=== PATIENT | male | born 1955 | race Caucasian/White ===

== ENCOUNTER 2024-07-13 10:02 | Outpatient (CLI) | payer MEDICARE, SELFPAY ==
--- NOTE | ~2024-07-13 | MR_ITS ---
EXAMINATION: MR pelvis wo/w con DATE: 07/13/2024 12:19 INDICATION: Prostate cancer TECHNIQUE: Magnetic resonance imaging (MRI) of the pelvis was performed without and with 20 mL Multih ance intravenous contrast. Fullfield sequences of the pelvis included axial and coronal T2-weighted S S FSE, axial, sagittal and coronal 2D FIESTA, axial 2D FIESTA FS, axial SSFSE-IR LISA, axial dual-echo T1-weighted FSPGR, axial and coronal T1 weighted LAVA, 3D axial T2 Cube, axial diffusion-weighted SE with apparent diffusion coefficient (ADC) maps. Postcontrast sequences included a time course axial T1-weighted LAVA and sagittal and coronal T1-weighted LAVA. COMPARISON: None. FINDINGS: Prostate measures 3.5 x 2.8 cm. Seminal vesicles are unremarkable. Bladder is normal. Visualized port ions of the bowels including the appendix are normal. No pathologically enlarged pelvic or inguinal l ymphadenopathy. Small bilateral fat-containing inguinal hernias. Mild lumbar spondylosis. Normal bone marrow signal throughout. IMPRESSION: 1. Prostate measures 3.5 x 2.8 cm with no evident metastatic disease. Reviewed, dictated and finalized at location A.
--- OUTSIDE RECORDS SUMMARY | 2024-07-13 11:36 | XMS_ITS | Clinical Summary ---
Author Organization [facility] [employer] Address [address] [place] [address] Care Team Providers Care Scene Shifter Name Role Phone Onur Frances MD Primary Care Provider [phone] Source Comments [facility] [employer],non-owned Affiliates and Associated Physician Practices is amultiple site organization consisting of ambulatory clinics and hospital sitesin [place], [place], [place] and [place]. This disclosure is being madepursuant to the Care Everywhere program and may not contain all information available regarding this patient. Last updated 17.[facility] [employer] Allergies No known active allergies Medications * Be aware that medications may not be up to date on this document. Alwaysverify current medications with the patient. Medication Sig Dispensed Refills Start Date End Date Status methocarbamol (ROBAXIN) 750 MG tablet Take 750 mg by mouth every 6 hours as needed for Muscle Spasms Active Acetaminophen-Codeine (TYLENOL WITH CODEINE #3 PO) Take 1 Tab by mouth every 4 hours as needed Active piroxicam (FELDENE) 20 MG capsule Take 20 mg by mouth once daily Active Social History Tobacco Use Types Packs/Day Years Used Date Smoking Tobacco: Former Cigarettes Q uit: 04/08/1989 Smokeless Tobacco: Never Alcohol Use Standard Drinks/Week Comments Yes 0 (1 standard drink = 0.6 oz pur e alcohol) rarely Sex and Gender Information Value Date Recorded Sex Assigned at Not on file Gender Identity Not on file Sexual Orientation Not on file Last Filed Vital Signs Vital Sign Reading Time Taken Comments Blood Pressure 185/86 06/01/2015 11:13 AM LICENSE DISTRIBUTOR Pulse 63 06/01/2015 11:13 AM LICENSE DISTRIBUTOR Temperature 36.7 C (98 F) 05/17/2015 1:05 PM LICENSE DISTRIBUTOR Respiratory Rate 18 05/17/2015 1:05 PM LICENSE DISTRIBUTOR Oxygen Saturation 99% 05/17/2015 1:05 PM LICENSE DISTRIBUTOR Inhaled Oxygen Concentration - - Weight 115.7 kg (255 lb) 06/01/2015 11:13 AM LICENSE DISTRIBUTOR Height 185.4 cm (6' 1 ) 06/01/2015 11:13 AM LICENSE DISTRIBUTOR Body Mass Index 33.64 06/01/2015 11:13 AM LICENSE DISTRIBUTOR Plan of Treatment Health Maintenance Due Date Last Done Comments COLOGUARD (AGES 45-75) - COL ON CA SCREENING 1955 COLON MONITORING 1955 COLONOSCOPY - COLON CA SCREENING 1955 CT COLONOGRAPHY - COLON CA SCREENING 1955 Colorectal Cancer Screening 1955 FIT - COLON CA SCREENING 1955 FLEX SIG - COLON CA SCREENING 1955 LIPID TESTING 1955 HEPATITIS C SCREENING 12/26/1973 DTAP/TDAP/TD VACCINES (1 - Tdap) 12/30/1974 PNEUMOCOCCAL VACCINE 50+ (1 of 1 - PCV) 12/30/2005 ZOSTER VACCINE (1 of 2) 12/30/2005 AAA SCREENING 12/30/2020 COVID-19 VACCINE (1 - 2023-2 5 season) 2023 DEPRESSION SCREENING 04/08/2024 MEDICARE AWV CALENDAR YEAR 2024 INFLUENZA VACCINE (Season Ended) 2024 Respiratory Syncytial Virus (RSV) Vaccine Pt: or over 60 yrs (1 - 1-dose 75+ series) 12/30/2030 HEPATITIS B VACCINE Aged Out No longe r eligible based on patient's age to complete this topic HIB VACCINE Aged Out No longer eligi ble based on patient's age to complete this topic HPV VACCINE Aged Out No longer eligi ble based on patient's age to complete this topic MENINGOCOCCAL (Group B) VACC INE SHARED DECISION-MAKING Aged Out No longer eligibl e based on patient's age to complete this topic MENINGOCOCCAL GROUPS A/C/Y/W VACCINE Aged Out No longer eligible b ased on patient's age to complete this topic Medical Devices Implanted Type Area Ec Teacher Device Identifier Shelf Expiration Date Model / Serial / Lot Wax Bone Implanted:Qty: 1 on 05/17/2015 by Erich De Santiago MD at [facility] Right: Spine Lumbar [employer] 07/08/2019 [id number] / / [id number] Floseal Implanted:Qty: 1 on 05/17/2015 by Erich De Santiago MD at [facility] Right: Spine Lumbar [facility] 08/05/2016 [id number] / / [id number] Advance Directives * Full Code (Latest Code Status on File) Date Activated Date Inactivated Comments 05/17/2015 11:29 AM 05/17/2015 5:27 PM Care Teams Scene Shifter Relationship Specialty Start Date End Date Onur Frances MD PCP - General Internal Medicine 05/11/15
--- OUTSIDE RECORDS SUMMARY | 2024-07-13 11:36 | XMS_ITS | Encounter Summary ---
Author Organization [facility] Address [address] [place] [address] Phone Care Team Providers Care Mold Press Operator Name Role Phone Liz Plaza MD Primary Care Provider Sandra Busby APRN, CNP Primary Care P rovider Andrey Chaudhry MD Unavailable [phone] Reason for Visit * Reason Comments Medication Refill Encounter Details Date Type Department Care Team (Late st Contact Info) Description 05/10/2023 Refill [facility] - Primary Care - [place] [address] [place] [address] Liz Plaza MD [address] [place] [address] Medication Refill Social History Tobacco Use Types Packs/Day Years Used Date Smoking Tobacco: Never Smokeless Tobacco: Never Alcohol Use Standard Drinks/Week Comments Yes 0 (1 standard drink = 0.6 oz pur e alcohol) seldom PHQ-2 Answer Date Recorded Total Score - Questions 1-9 0 10/2021 Education Answer Date Recorded What is the highest level of school you have completed or the highest degree you have received? 12th grade 05/11/2022 Sex and Gender Information Value Date Recorded Sex Assigned at Male 06/11/2024 7:[address] CLERK Legal Sex Male 9:[address] CLERK Gender Identity Male 06/11/2024 7:[address] CLERK Sexual Orientation Straight 06/11/2024 7: [address] CLERK documented as of this encounter Plan of Treatment Upcoming Encounters Date Type Department Care Team (Late st Contact Info) Description 08/14/2024 10:15 AM CDT [facility] [address] [facility] [place] [address] Andrew Toth MD 2 [facility] [address] [place] [address] 09/10/2024 8:30 AM CDT Lab [facility] [place] [address] [place] [address] [facility] 09/22/2024 8:00 AM CDT Office Visit [facility] [place] [address] [place] [address] Sandra Busby APRN, SUPERVISOR ENGRAVING [address] [place], [place] [id number] documented as of this encounter Results * LIPID PANEL (06/04/2023 8:[address] CLERK) CHOLESTEROL 144 <200 mg/dL 06/04/2023 1:[address] CLERK [facility] TRIGLYCERIDES 121 <150 mg/dL 06/04/2023 1:[address] CLERK [facility] HDL CHOLESTEROL 42 >40 mg/dL 1:[address] CLERK [facility] LDL 78 <130 mg/dL 06/04/2023 1:[address] CLERK [facility] VLDL 24 10 - 50 mg/dL 06/04/2023 1:[address] CLERK [facility] CHOL/HDL RATIO 3.4 0.0 - 4.4 06/04/2023 1:[address] CLERK [facility] NON-HDL CHOLESTEROL 102 <130 mg/dL 06/04/2023 1:14 PM [facility] IS THE PATIENT REQUIRED TO BE FASTING? Yes 06/04/2023 1:14 PM [facility] HAS THE PATIENT BEEN FASTING? Yes 06/04/2023 1:14 PM [facility] Blood Venipuncture / Unknown 06/04/2023 8:[address] CLERK 06/04/2023 8:[address] CLERK us Sandra Busby APRN, SUPERVISOR ENGRAVING CHEMISTRY ORDER KARL Final Result [facility] [address] [place] [address] * (ABNORMAL) CMP (COMPREHENSIVE METABOLIC PANEL) (06/04/2023 8:[address] CLERK) SODIUM 139 136 - 145 mmol/L 06/04/2023 1:14 PM [facility] POTASSIUM 4.3 3.5 - 5.1 mmol/L 06/04/2023 1:14 PM [facility] CHLORIDE 104 98 - 107 mmol/L 06/04/2023 1:14 PM [facility] CO2, VENOUS 27 22 - 30 mmol/L 06/04/2023 1:14 PM [facility] ANION GAP 12.3 <18.0 mmol/L 06/04/2023 1:14 PM [facility] GLUCOSE 105(H) 70 - 99 mg/dL 06/04/2023 1:14 PM [facility] BUN 23 8 - 26 mg/dL 06/04/2023 1:14 PM [facility] CREATININE, BLOOD 0.84 0.70 - 1.30 mg/dL 06/04/2023 1:14 PM [facility] BUN/CREATININE RATIO 27(H) 12 - 20 ratio 06/04/2023 1:14 PM [facility] TOTAL PROTEIN 7.5 6.3 - 8.2 g/dL 06/04/2023 1:14 PM [facility] ALBUMIN 3.8 3.5 - 5.0 g/dL 06/04/2023 1:14 PM [facility] A/G RATIO 1.0 1.0 - 2.2 06/04/2023 1:14 PM [facility] CALCIUM 9.2 8.7 - 10.5 mg/dL 06/04/2023 1:14 PM [facility] T BILI 0.6 0.2 - 1.2 mg/dL 06/04/2023 1:14 PM [facility] SGOT (AST) 21 5 - 34 U/L 06/04/2023 1:14 PM [facility] SGPT (ALT) 24 0 - 55 U/L 06/04/2023 1:14 PM [facility] ALKALINE PHOSPHATASE 79 40 - 150 U/L 06/04/2023 1:14 PM [facility] IS THE PATIENT REQUIRED TO BE FASTING? No 06/04/2023 1:14 PM [facility] GFR, ESTIMATED >60 >=60 06/04/2023 1:14 PM [facility] Comment: Creatinine Clearance is the preferred criteria for selecting drug dose adjustments in renally impaired patients. The GFR is provided as additional pertinent clinical information. GFR is reported in mL/min/1.73 sq m. Calculation based on the Chronic Kidney Disease Epidemiology Collaboration (CKD- EPI) equation refit without adjustment for race. GFR, EST. >60 >=60 024 1:14 PM [facility] GFR, EST. NONAFRICAN >60 >=60 06/04/2023 1:14 PM [facility] Blood Venipuncture / Unknown 06/04/2023 8:[address] CLERK 06/04/2023 8:[address] CLERK Sandra Busby APRN, CNP CHEMISTRY ORDER KARL Final Result [facility] [address] [place] [address] documented in this encounter Visit Diagnoses Diagnosis Edema, unspecified type- Primary Primary hypertension Unspecified essential hypertension documented in this encounter Additional Health Concerns Assessment Noted Time PHQ-9 Depression Total Score: 0 10/27/19 21 8:00 AM CDT documented as of this encounter Care Teams Mold Press Operator Relationship Specialty Start Date End Date Liz Plaza MD [address] [place] [address] PCP - General Family Medicine 11/12/22 06/10/23 Sandra Busby APRN, CNP [address] [place] [address] PCP - General Advanced Practice Nurse 06/11/23 Andrey Chaudhry MD [address], [address] [address] Consulting Physician Urology 01/20/24 documented as of this encounter
--- OUTSIDE RECORDS SUMMARY | 2024-07-13 11:36 | XMS_ITS | Encounter Summary ---
Author Organization [facility] Address [address] [place] [address] Phone Care Team Providers Care Social Media Content Manager Name Role Phone Sandra Busby APRN, CNP Primary Care P rovider Andrey Chaudhry MD Unavailable [phone] Reason for Visit * Reason Comments Medication Refill Encounter Details Date Type Department Care Team (Late st Contact Info) Description 07/12/2024 Refill [facility] - Primary Care - [place] [address] [place] [address] Sandra Busby APRN, CNP [address] [place] [address] Medication Refill Social History Tobacco Use Types Packs/Day Years Used Date Smoking Tobacco: Never Smokeless Tobacco: Never Alcohol Use Standard Drinks/Week Comments Yes 0 (1 standard drink = 0.6 oz pur e alcohol) Seldom [facility] Utilities Answer Date Recorded In the past 12 months has [employer] electric, gas, oil, or water company threatened to shut off services in your home? No 12/17/2023 Social Connection and Isolat ion Panel [NHANES] Answer Date Recorded In a typical week, how many times do you talk on the phone with family, friends, or neighbors? More than three times a week 12/17/2023 How often do you get togethe r with friends or relatives? Twice a week 12/17/2023 How often do you attend chur ch or mormon services? 1 to 4 times per year 12/17/2023 Do you belong to any clubs o r organizations such as taoist groups, unions, fraternal or athletic groups, or school groups? No 12/17/2023 How often do you attend meet ings of the clubs or organizations you belong to? Never 12/17/2023 Are you , , di vorced, , never , or living with a partner? 12/17/2023 AUDIT-C Answer Date Recorded Q1: How often do you have a drink containing alc ohol? 2-4 times a month 12/17/2023 Q2: How many drinks containi ng alcohol do you have on a typical day when you are drinking? 1 or 2 12/17/2023 Q3: How often do you have si x or more drinks on one occasion? Never 12/17/2023 Overall Financial Resource Strain (CARDIA) Answe r Date Recorded How hard is it for you to pa y for the very basics like food, housing, medical care, and heating? Not hard at all 12/17/2023 PHQ-2 Answer Date Recorded Total Score - Questions 1-9 0 06/2023 [facility] - Occupational Stress Questionnaire Answer Date Recorded Do you feel stress - tense, restless, nervous, or anxious, or unable to sleep at night because your mind is troubled all the time - these days? Not at all 12/17/2023 Exercise Vital Sign Answer Date Recorde d On average, how many days pe r week do you engage in moderate to strenuous exercise (like a brisk walk)? 5 days 12/17/2023 On average, how many minutes do you engage in exercise at this level? 20 min 12/17/2023 Hunger Vital Sign Answer Date Recorded Within the past 12 months, y ou worried that your food would run out before you got the money to buy more. Never true 12/17/19 24 Within the past 12 months, t he food you bought just didn't last and you didn't have money to get more. Never true 12/17/2023 PRAPARE - Transportation Answer Date Re corded In the past 12 months, has l ack of transportation kept you from medical appointments or from getting medications? No 12/07 In the past 12 months, has l ack of transportation kept you from meetings, work, or from getting things needed for daily living? No 12/17/2023 Housing Stability Vital Sign Answer Nolberto e Recorded Unable to Pay for Housing in the Last Year Not o n file 06/10/2023 In the last 12 months, how many places have you lived? 1 06/10/2023 In the last 12 months, was t here a time when you did not have a steady place to sleep or slept in a skilled nursing (including now)? No 06/10/2023 Housing Stability Vital Sign Answer Nolberto e Recorded In the last 12 months, was t here a time when you were not able to pay the mortgage or rent on time? No 12/17/2023 In the past 12 months, how m any times have you moved where you were living? 0 12/17/2023 At any time in the past 12 m ont, were you homeless or living in a skilled nursing (including now)? No 12/17/2023 Education Answer Date Recorded What is the highest level of school you have completed or the highest degree you have received? 12th grade 05/11/2022 Sex and Gender Information Value Date Recorded Sex Assigned at Male 06/11/2024 7:58 AM DIE TURNER Legal Sex Male 9:26 AM DIE TURNER Gender Identity Male 06/11/2024 7:58 AM DIE TURNER Sexual Orientation Straight 06/11/2024 7: 58 AM DIE TURNER documented as of this encounter Plan of Treatment Upcoming Encounters Date Type Department Care Team (Late st Contact Info) Description 08/14/2024 10:15 AM CDT [facility] 1 [place] [phone] Andrew Toth MD [address] [address] 09/10/2024 8:30 AM CDT Lab [facility] - Primary Care - [place] [place] [address] [facility] 09/22/2024 8:00 AM CDT Office Visit [facility] - Primary Care - [place] [address] [place] [phone] Sandra Busby APRN, CNP [address] [place] [address] documented as of this encounter Goals Goal Patient Goal Type Associated Problems Recent Progress Patient-Stated? Author Help patient manage hypertension Care Plan [facility] HYPERTENSION CONCERN (PATIENT NOT ON HIGH BLOOD PRESSURE MEDICATIONS) No Sandra Gonzalez APRN, WALI documented as of this encounter Visit Diagnoses Not on filedocumented in this encounter Additional Health Concerns Active Problems Noted Date Diagnosed Date [facility] HYPERTENSION CONCERN (P ATIENT NOT ON HIGH BLOOD PRESSURE MEDICATIONS) 03/19/2024 Assessment Noted Time PHQ-9 Depression Total Score: 0 01/09/20 8:44 AM CDT documented as of this encounter Care Teams Social Media Content Manager Relationship Specialty Start Date End Date Sandra Busby APRN, WALI [address] [place] [address] PCP - General Advanced Practice Nurse 06/11/23 Andrey Chaudhry MD [address] [address] Consulting Physician Urology 01/20/24 documented as of this encounter
--- OUTSIDE RECORDS SUMMARY | 2024-07-13 11:36 | XMS_ITS | Encounter Summary ---
Author Organization [facility] Address [address] [place] [address] Phone Care Team Providers Care Media Producer Name Role Phone Mary Elias APRN, WALI Primary Care Provider Liz Plaza MD Primary Care Provider [phone] Sandra Busby APRN, [facility] Primary Care P rovider Andrey Chaudhry MD Unavailable Reason for Visit * Reason Comments Medication Refill Encounter Details Date Type Department Care Team (Late st Contact Info) Description 10/03/2020 [facility] [place] [address] [place] [address] [facility] [address] [place] [address] Medication Refill Social History Tobacco Use Types Packs/Day Years Used Date Smoking Tobacco: Never Smokeless Tobacco: Never Alcohol Use Standard Drinks/Week Comments Yes 0 (1 standard drink = 0.6 oz pur e alcohol) seldom Sex and Gender Information Value Date Recorded Sex Assigned at Male 06/11/2024 7:58 AM FORM BLOCK MAKER Legal Sex Male 9:26 AM FORM BLOCK MAKER Gender Identity Male 06/11/2024 7:58 AM FORM BLOCK MAKER Sexual Orientation Straight 06/11/2024 7: 58 AM FORM BLOCK MAKER COVID-19 Exposure Response Date Recorded In the last month, have you been in contact with someone who was confirmed or suspected to have Coronavirus / COVID-19? No / Unsure 10/05/2020 9:37 AM CDT documented as of this encounter Miscellaneous Notes * Telephone Encounter - Lyubov Hernandez RN - 10/03/2020 3:25 PM CDT Medication failed the protocol, provider to review and approve the medication order if appropriate. Requested Prescriptions Pending Prescriptions Disp Refills ergocalciferol (VITAMIN D) 82186 UNIT Capsule [Pharmacy Med Name: VITAMIN D2 1.25MG(50,000 UNIT)] 12 Capsule 1 Sig: TAKE 1 CAPSULE BY MOUTH ONE TIME PER WEEK There is no refill protocol information for this order documented in this encounter Plan of Treatment Upcoming Encounters Date Type Department Care Team (Late st Contact Info) Description 08/14/2024 10:15 AM CDT [facility] [address] [place] [address] Andrew Toth MD [address] [address] 09/10/2024 8:30 AM CDT Lab [facility] [place] [address] [place] [address] [facility] 09/22/2024 8:00 AM CDT Office [facility] [place] [address] [place] [phone] Sandra Busby APRN, ASSOCIATE STORE DIRECTOR [address] [place] [address] documented as of this encounter Visit Diagnoses Diagnosis Low vitamin D level documented in this encounter Care Teams Media Producer Relationship Specialty Start Date End Date Mary Elias APRN, ASSOCIATE STORE DIRECTOR [address] [place] [address] PCP - General Advanced Practice Nurse 09/15/19 10/29/22 Liz Plaza MD [address] [place] [address] PCP - General Family Medicine 11/12/22 06/10/23 Sandra Busby APRN, ASSOCIATE STORE DIRECTOR [address] [place] [address] PCP - General Advanced Practice Nurse 06/11/23 Andrey Chaudhry MD [address] [address] Consulting Physician Urology 01/20/24 documented as of this encounter
--- OUTSIDE RECORDS SUMMARY | 2024-07-13 11:36 | XMS_ITS | Encounter Summary ---
Author Organization [facility] Address [address] [place] [address] Phone Care Team Providers Care Instructor Private Name Role Phone Sandra Busby APRN, WALI Primary Care P ropandader Andrey Chaudhry MD Unavailable [phone] Reason for Visit * Reason Comments Medication Refill Encounter Details Date Type Department Care Team (Late st Contact Info) Description 07/19/2023 Refill [facility] - Primary Care - [place] [address] [place] [address] Liz Plaza MD [address] [place] [address] Medication Refill Social History Tobacco Use Types Packs/Day Years Used Date Smoking Tobacco: Never Smokeless Tobacco: Never Alcohol Use Standard Drinks/Week Comments Yes 0 (1 standard drink = 0.6 oz pur e alcohol) seldom [facility] Utilities Answer Date Recorded In the past 12 months has [employer] electric, gas, oil, or water company threatened to shut off services in your home? No 06/10/2023 Social Connection and Isolat ion Panel [NHANES] Answer Date Recorded In a typical week, how many times do you talk on the phone with family, friends, or neighbors? More than three times a week 06/10/2023 How often do you get togethe r with friends or relatives? Once a week 06/10/2023 How often do you attend chur ch or alevism services? Never 06/10/2023 Do you belong to any clubs o r organizations such as nondenominational groups, unions, fraternal or athletic groups, or school groups? No 06/10/2023 How often do you attend meet ings of the clubs or organizations you belong to? Never 06/10/2023 Are you , , di vorced, , never , or living with a partner? 06/10/2023 AUDIT-C Answer Date Recorded Q1: How often do you have a drink containing alc ohol? 2-4 times a month 06/10/2023 Q2: How many drinks containi ng alcohol do you have on a typical day when you are drinking? 1 or 2 06/10/2023 Q3: How often do you have si x or more drinks on one occasion? Never 06/10/2023 Overall Financial Resource Strain (CARDIA) Answe r Date Recorded How hard is it for you to pa y for the very basics like food, housing, medical care, and heating? Not hard at all 06/10/2023 PHQ-2 Answer Date Recorded Total Score - Questions 1-9 0 10/2021 [facility] - Occupational Stress Questionnaire Answer Date Recorded Do you feel stress - tense, restless, nervous, or anxious, or unable to sleep at night because your mind is troubled all the time - these days? Not at all 06/10/2023 Exercise Vital Sign Answer Date Recorde d Days of Exercise per Week Not on file 2023 On average, how many minutes do you engage in exercise at this level? 30 min 06/10/2023 Hunger Vital Sign Answer Date Recorded Within the past 12 months, y ou worried that your food would run out before you got the money to buy more. Never true 06/10/19 24 Within the past 12 months, t he food you bought just didn't last and you didn't have money to get more. Never true 06/10/2023 PRAPARE - Transportation Answer Date Re corded In the past 12 months, has l ack of transportation kept you from medical appointments or from getting medications? No 07/2023 In the past 12 months, has l ack of transportation kept you from meetings, work, or from getting things needed for daily living? No 06/10/2023 Housing Stability Vital Sign Answer Nolberto e Recorded Unable to Pay for Housing in the Last Year Not o n file 06/10/2023 In the last 12 months, how many places have you lived? 1 06/10/2023 In the last 12 months, was t here a time when you did not have a steady place to sleep or slept in a residential (including now)? No 06/10/2023 Education Answer Date Recorded What is the highest level of school you have completed or the highest degree you have received? 12th grade 05/11/2022 Sex and Gender Information Value Date Recorded Sex Assigned at Male 06/11/2024 7:58 AM MEDICAL TRANSCRIBER Legal Sex Male 9:26 AM MEDICAL TRANSCRIBER Gender Identity Male 06/11/2024 7:58 AM MEDICAL TRANSCRIBER Sexual Orientation Straight 06/11/2024 7: 58 AM MEDICAL TRANSCRIBER documented as of this encounter Plan of Treatment Upcoming Encounters Date Type Department Care Team (Late st Contact Info) Description 08/14/2024 10:15 AM CDT [facility]ointment [facility] [address] [place] [address] Andrew Toth MD [address] [address] 09/10/2024 8:30 AM CDT Lab [facility] [address] [place] [address] [facility] 09/22/2024 8:00 AM CDT Office Visit [facility] [address] [place] [address] Sandra Busby APRN, ASSOCIATE GENETICS PROFESSOR [address] [place] [address] documented as of this encounter Visit Diagnoses Not on filedocumented in this encounter Additional Health Concerns Assessment Noted Time PHQ-9 Depression Total Score: 0 07/21/20 21 8:00 AM CDT documented as of this encounter Care Teams Instructor Private Relationship Specialty Start Date End Date Sandra Busby APRN, ASSOCIATE GENETICS PROFESSOR [address] [place] [address] PCP - General Advanced Practice Nurse 06/11/23 Andrey Chaudhry MD [address]2 [facility] [address] [place] [address] Consulting Physician Urology 01/20/24 documented as of this encounter
--- OUTSIDE RECORDS SUMMARY | 2024-07-13 11:36 | XMS_ITS | Encounter Summary ---
Author Organization [facility] Address [address] [place] [address] Phone Care Team Providers Care Braille Typist Name Role Phone Mary Elias APRN, WALI Primary Care Provider Liz Plaza MD Primary Care Provider Sandra Busby APRN, [facility] Primary Care P rovider Andrey Chaudhry MD Unavailable Reason for Visit * Reason Comments Medication Refill Encounter Details Date Type Department Care Team (Late st Contact Info) Description 04/27/2021 Refill [facility] - [place] - [place] [address] [place] [address] [facility] [address] [place] [address] Medication Refill Social History Tobacco Use Types Packs/Day Years Used Date Smoking Tobacco: Never Smokeless Tobacco: Never Alcohol Use Standard Drinks/Week Comments Yes 0 (1 standard drink = 0.6 oz pur e alcohol) seldom PHQ-2 Answer Date Recorded Total Score - Questions 1-9 0 10/07 Sex and Gender Information Value Date Recorded Sex Assigned at Male 06/11/2024 7:58 AM SMALL BOAT ENGINEER Legal Sex Male 9:26 AM SMALL BOAT ENGINEER Gender Identity Male 06/11/2024 7:58 AM SMALL BOAT ENGINEER Sexual Orientation Straight 06/11/2024 7: 58 AM SMALL BOAT ENGINEER documented as of this encounter Miscellaneous Notes * Telephone Encounter - Melvi Calixto RN - 04/27/2021 7:19 AM SMALL BOAT ENGINEER Medication approved and signed per standing order protocol. L BOAT ENGINEER documented in this encounter Plan of Treatment Upcoming Encounters Date Type Department Care Team (Late st Contact Info) Description 08/14/2024 10:15 AM CDT [facility] [address] [place] [address] Andrew Toth MD 2 [facility] [address] [place] [address] 09/10/2024 8:30 AM CDT Lab [facility] [place] [address] [place] [address] [facility] 09/22/2024 8:00 AM CDT Office Visit [facility] [place] [address] [place] [address] Sandra Busby APRN, GROUND OPERATIONS SUPERINTENDENT [address] [place] [address] documented as of this encounter Visit Diagnoses Not on filedocumented in this encounter Additional Health Concerns Assessment Noted Time PHQ-9 Depression Total Score: 0 10/27/19 21 8:00 AM CDT documented as of this encounter Care Teams Braille Typist Relationship Specialty Start Date End Date Mary Elias APRN, GROUND OPERATIONS SUPERINTENDENT [address] [place] [address] PCP - General Advanced Practice Nurse 09/15/19 10/29/22 Liz Plaza MD [address] [place] [address] PCP - General Family Medicine 11/12/22 06/10/23 Sandra Busby APRN, GROUND OPERATIONS SUPERINTENDENT [address] [place] [address] PCP - General Advanced Practice Nurse 06/11/23 Andrey Chaudhry MD #[address] [address] Consulting Physician Urology 01/20/24 documented as of this encounter
--- OUTSIDE RECORDS SUMMARY | 2024-07-13 11:36 | XMS_ITS | Clinical Summary ---
Author Organization [facility] Address [address] [place] [address] Phone Care Team Providers Care Public Health Analyst Name Role Phone Sandra Busby APRN, HIGHWAY TRUCK DRIVER Primary Care P rovider Andrey Chaudhry MD Unavailable [phone] Allergies No known active allergies Medications Cholecalciferol (Vitamin D) 2000 UNIT Tablet Take by mouth. Active Multiple Vitamins-Minerals (PRESERVISION AREDS PO) Take by mouth daily. Active carvedilol (COREG) 12.5 MG TabletIndications:P rimary hypertension Take 1 Tablet by mouth 2 times daily. 180 Tablet 3 4 Active amLODIPine (NORVASC) 10 MG Tablet TAKE 1 TABLET BY MOUTH EVERY DAY 90 Tablet 5 Active lisinopril-hydroCHL OROthiazide (PRINZIDE, ZESTORETIC) 20-25 MG Tablet TAKE 1 TABLET BY MOUTH EVERY DAY 90 Tablet 1 5 Active lisinopril (PRINIVIL, ZESTRIL) 20 MG TabletIndications:P rimary hypertension TAKE 1 TABLET BY MOUTH EVERY DAY 90 Tablet 1 5 Active atorvastatin (LIPITOR) 40 MG TabletIndications:M ixed hyperlipidemia Take 1 Tablet by mouth nightly. 90 Tablet 1 5 Active Active Problems Problem Noted Date Diagnosed Date High blood pressure 09/15/2019 Encounters Date Type Department Care Team Description 07/12[facility] [place] [address] [place] [phone] Sandra Busby APRN, WALI Medication Refill 06/11/[address] [facility] Call Center [address] [place] [address] Sandra Busby APRN, WALI Follow-up 06/10/2024 Transcribe Orders [facility] Central Scheduling [address] [place] [phone] Andrew Toth MD Age-related osteoporosis without current pathological fracture (Primary Dx) 05/31/2024 Refill [facility] - [place] [address] [place] [phone] Sandra Busby APRN, WALI Medication Refill 04/20/2024 Telephone [facility] UROLOGY [address] [place] [address] Andrey Chaudhry MD 04/20/2024 Results Follow-Up [facility] UROLOGY [address] [place] [address] Andrey Chaudhry MD Prostate cancer (HCC) (Primary Dx) 04/16/2024 7:36 AM TIE KNITTER HELPER - 04/16/2024 11:59 PM TIE KNITTER HELPER [facility] [address] [place] [phone] Andrey Chaudhry MD Discharge Disposition: Discharged to home or Selfcare 04/16/2024 Refill [facility] Primary [facility] - [place] [address] [place] [phone] Sandra Busby APRN, HIGHWAY TRUCK DRIVER Medication Refill 04/14/2024 Travel from Last 3 Months Immunizations Immunization Administration Dates Next Due Covid-19 Vaccine, Vector-nr, Rs-ad26, Pf, 0.5 Ml (YUMIKO/J&J) 07/15/2020 Covid-19, Mrna, Lnp-s, Pf, 30 Mcg/0.3 Ml Dose (Fátima livingston) 04/21/2021 Influenza Vaccine 02/06/2023 Influenza Vaccine greater than 3 yrs 02/10/2020 Influenza, High-dose, Quadrivalent 04/21/2021 Influenza, Seasonal, Injectable, Undefined 02/09,01/18/2014 Influenza, Trivalent, Adjuvanted, PF 12/19/2023 Pneumococcal Vaccine Adult - 23 Valent Pneumococcal conjugate PCV20 , polysaccharide [id number] conjugate, adjuvant, PF 11/14/2022 TDAP Vaccine 07/08/2019 Family History Medical History Relation Name Comments Kidney Disease Father Osteoarthritis Mother Hypertension Sister Relation Name Status Comments Father Mother Alive Sister Alive Social History Tobacco Use Types Packs/Day Years Used Date Smoking Tobacco: Never Smokeless Tobacco: Never Tobacco Cessation:Counseling Given: No Alcohol Use Standard Drinks/Week Comments Yes 0 (1 standard drink = 0.6 oz pur e alcohol) Seldom [email or web address] Answer Date Recorded In the past 12 months has [employer], gas, oil, or water [employer] threatened to shut off services in your [...] week 12/17/2023 How often do you attend [facility] or restoration services? 1 to 4 times per year 12/17/2023 Do you belong to any clubs o r organizations such as druze groups, unions, fraternal or athletic groups, or [...] Total Score - Questions 1-9 0 06/2023 [facility] - Occupational Stress [...] place to sleep or slept in a long term (including now)? No 06/10/2023 Housing Stability Vital Sign Answer Nolberto e Recorded In the last 12 months, was t here a time when you were not able to pay the mortgage or rent on time? No 12/17/2023 In the past 12 months, how m any times have you moved where you were living? 0 12/17/2023 At any time in the past 12 m [facility], were you homeless or living in a long term (including now)? No 12/17/2023 Education Answer Date Recorded What is the highest level of school you have completed or the highest degree you have received? 12th grade 05/11/2022 Sex and Gender Information Value Date Recorded Sex Assigned at Male 06/11/2024 7:58 AM TIE KNITTER HELPER Legal Sex Male 9:26 AM TIE KNITTER HELPER Gender Identity Male 06/11/2024 7:58 AM TIE KNITTER HELPER Sexual Orientation Straight 06/11/2024 7: 58 AM TIE KNITTER HELPER Last Filed Vital Signs Vital Sign Reading Time Taken Comments Blood Pressure 146/70 03/19/2024 8:04 AM TIE KNITTER HELPER Pulse 52 03/19/2024 8:04 AM TIE KNITTER HELPER Temperature 36.6 C (97.8 F) 03/19/2024 8:04 AM TIE KNITTER HELPER Respiratory Rate 20 03/19/2024 8:04 AM TIE KNITTER HELPER Oxygen Saturation 98% 03/19/2024 8:04 AM TIE KNITTER HELPER Inhaled Oxygen Concentration - - Weight 125.6 kg (277 lb) 03/19/2024 8:04 AM TIE KNITTER HELPER Height 185.4 cm (6' 1 ) 03/09/2024 9:41 AM TIE KNITTER HELPER Body Mass Index 36.55 03/09/2024 9:41 AM TIE KNITTER HELPER Plan of Treatment Upcoming Encounters Date Type Department Care Team (Late st Contact Info) Description 08/14/2024 10:15 AM CDT [facility] [address] [place] [address] Andrew Toth MD [address] [address] 09/10/2024 8:30 AM CDT Lab [facility] - [facility] Care - [place] [facility] [place] [address] [facility] 09/22/2024 8:00 AM CDT Office Visit [facility] - Primary Care - [place] [address] [place] [address] Sandra Busby, PRIOR AUTHORIZATION TECHNICIAN, HIGHWAY TRUCK DRIVER [address] [place] [address] Health Maintenance Due Date Last Done Comments Zoster Immunization (1 of 2) 12/30/1974 Colonoscopy 12/30/2000 Immunochemical Fecal Occult Blood 12/30/2005 Cologuard 11/02/2023 11/01/2020 Colorectal Cancer Screening 11/02/2023 SARS-COV-2 Immunization ( season) 2023 04/21/2021, 07/15/2020 Td Immunization Every 10 Years (Adults With 1 Tdap) 07/07/2029 07/08/2019 Respiratory Syncytial Virus (RSV) Immunization (Adult) (1 - 1-dose 75+ series) 12/30/2030 DTaP/Tdap/Td Immunization Discontinued 07/08/2019, 04/2019 Pneumococcal Immunization (50+ years) Completed 11/14/2022, 05/15/2021 Pneumococcal Immunization Combined Discontinued 11/14/2022, 05/15/2021 Hepatitis C Virus (HCV) Screening Completed 12/12/2023 Influenza Immunization Completed , 02/06/2023, 04/21/2021, Additional history exists PSA Discussion Completed 12/19/2023, 08/2023, 05/15/2021, Additional history exists Hepatitis B Immunization Aged Out No longer eligible based on patient's age to complete this topic Meningococcal Immunization (ACWY) Aged Out No longer eligible based on patient's age to complete this topic Rotavirus Immunization Aged Out No lo nger eligible based on patient's age to complete this topic Goals Goal Patient Goal Type Associated Problems Recent Progress Patient-Stated? Author Help patient manage hypertension Care Plan MCCP HYPERTENSION CONCERN (PATIENT NOT ON HIGH BLOOD PRESSURE MEDICATIONS) No Sandra Gonzalez, PRIOR AUTHORIZATION TECHNICIAN, HIGHWAY TRUCK DRIVER Procedures Procedure Name Priority Date/Time Associated Diagnosis Comments RADIATION ONCOLOGY CONSULT 06/29/2024 12:00 AM CDT UROLOGY CONSULT 06/10/2024 12:00 AM TIE KNITTER HELPER EXTERNAL UROLOGY REFERRAL Less Than 2 weeks 04/23/2024 12:00 AM TIE KNITTER HELPER Prostate cancer (HCC) CT ABDOMEN PELVIS W/ CONTRAST Routine 04/16/2024 8:10 AM TIE KNITTER HELPER Prostate cancer (HCC) POCT CREATININE Routine 04/16/2024 7:54 AM TIE KNITTER HELPER PSA DIAGNOSTIC,TOTAL Routine 12/19/2023 8:44 AM CDT Elevated PSA HEPATITIS C ANTIBODY Routine 12/12/2023 8:02 AM CDT Encounter for HCV screening test for low risk patient COLOGUARD Routine 11/01/2020 6:30 AM CDT Colon cancer screening from Last 3 Months or Most Recently Relevant to Health Maintenance Results * RADIATION ONCOLOGY CONSULT (06/29/2024 12:00 AM CDT) 06/29/2024 us Provider Scan GENERIC SCAN ORDERS CONSULT Ria l Result Performing Organization Address [facility]/ZIP Co de Phone Number SCAN * UROLOGY CONSULT (06/10/2024 12:00 AM TIE KNITTER HELPER) 06/10/2024 us Provider Scan GENERIC SCAN ORDERS CONSULT Ria l Result SCAN * EXTERNAL UROLOGY REFERRAL (04/23/2024 12:00 AM TIE KNITTER HELPER) 04/23/2024 Andrey Chaudhry MD OUTPT REFERRALS EXT/INT Final Result Performing Organization Address City/[facility]/ZIP Co de Phone Number SCAN * CT ABDOMEN PELVIS W/ CONTRAST (04/16/2024 8:10 AM TIE KNITTER HELPER) Anatomical Region Laterality Modality Abdomen N/A Computed Tomogra phy 04/17/2024 7:57 AM TIE KNITTER HELPER Impressions 04/17/2024 7:59 AM TIE KNITTER HELPER IMPRESSION: Borderline enlarged and prominent subcentimeter pelvic lymph nodes along with scattered prominent subcentimeter retroperitoneal lymph nodes, which are indeterminate in etiology and james metastasis cannot be entirely excluded. Short-term follow-up CT in 3 months is recommended to assess for stability as clinically indicated. Multiple pulmonary nodules noted in the visualized lung bases, which are indeterminate in etiology. Further evaluation with chest CT on a nonemergent basis is recommended as clinically indicated. No definite evidence of bowel obstruction. Circumferential mucosal thickening of the urinary bladder, which may be related to underdistention, chronic urinary bladder outlet obstruction secondary to enlarged prostate gland, or cystitis. Clinical correlation with urinary analysis is recommended as clinically indicated. Scattered colonic diverticula without definite evidence of diverticulitis. Mildly enlarged prostate gland measuring 5.1 cm. Normal appendix. Narrative 04/17/2024 7:59 AM TIE KNITTER HELPER EXAM DESCRIPTION: CT ABDOMEN PELVIS W/ CONTRAST REASON FOR STUDY: Staging prostate cancer. Elevated PSA 5.33 on 06/2023 with transrectal US prostate biopsy on 03/09/24 TECHNIQUE: CT scan of the abdomen and pelvis performed with intravenous and without oral contrast using helical scanning technique with dynamic intravenous contrast injection. Reconstructed coronal and sagittal MPR images reviewed. All images stored on PACS. Automated exposure control was used as a dose optimization technique for this examination. CONTRAST TYPE/DOSE: 124mL of IOPAMIDOL 76 % IV SOLN injected via Intravenous COMPARISON: None FINDINGS: LOWER CHEST: The heart size is normal. There is no definite evidence of pericardial effusion. There are atherosclerotic changes of the aorta and vasculature. There is a minimal to mild bibasilar subsegmental atelectasis and scarring. There are multiple pulmonary nodules noted in the visualized lung bases with the largest measuring 0.5 cm on the right in the right lower lobe (axial image 29) and 0.6 cm on the left in the left lower lobe (axial image 17). There is a small hiatal hernia. There is mild bilateral gynecomastia. LIVER: The liver is grossly normal in size and contour without definite evidence of focal hepatic lesion. The hepatic and portal veins are grossly patent. GALLBLADDER: Grossly unremarkable. BILE DUCTS: No intrahepatic or extrahepatic ductal dilatation. SPLEEN: The spleen is grossly normal in size and unremarkable. PANCREAS: The pancreas appears grossly unremarkable without definite of pancreatic ductal dilatation, peripancreatic inflammatory changes, or peripancreatic fluid collection. ADRENALS: Bilateral adrenal glands are grossly symmetrical and unremarkable. KIDNEYS/URINARY TRACT: The bilateral kidneys enhance symmetrically. There is a 2.5 cm cyst in the upper pole of the right kidney, which does not require follow-up imaging. There are multiple peripelvic cysts in the bilateral kidneys, which do not require follow-up imaging. There is no definite evidence of hydronephrosis or hydroureter. There is circumferential mucosal thickening of the urinary bladder. The prostate gland measures 5.2 cm. GI: There is no definite evidence of bowel obstruction. The appendix is visualized without definite evidence of pericecal or periappendiceal inflammatory changes to suggest appendicitis. There are scattered colonic diverticula without definite evidence of diverticulitis. There is a small fat containing periumbilical hernia. There are small bilateral fat containing inguinal hernias. There is no definite evidence of free air or fluid in the abdomen and pelvis. There are borderline enlarged and prominent subcentimeter pelvic lymph nodes noted bilaterally with largest measuring 2.3 x 1.0 cm on the right in the right common iliac region (axial image 118) and 1.6 x 1.0 cm on the left in the left common iliac region (axial image 111). There are scattered prominent subcentimeter retroperitoneal lymph nodes noted with the largest lymph node measuring 1.3 by 0.8 cm in the left para-aortic region (axial image 79). There are scattered subcentimeter mesenteric lymph nodes noted with the largest lymph node measuring 2.0 by 0.8 cm (axial image 90). MUSCULOSKELETAL: There is mild osteopenia. There is mild dextroscoliotic curvature of the spine with degenerative changes. There are degenerative changes bilateral sacroiliac joints and bilateral hips. OTHER: No other abnormality. THIS IS AN ELECTRONICALLY VERIFIED FINAL REPORT 04/17/2024 7:57 AM - Electronically signed by Miky Trotter D.O. PS: PS Report ID: [id number] Reading Location: [id number] Procedure Note Miky Trotter DO - 04/17/2024 EXAM DESCRIPTION: CT ABDOMEN PELVIS W/ CONTRAST REASON FOR STUDY: Staging prostate cancer. Elevated PSA 5.33 on 06/2023 with transrectal US prostate biopsy on 03/09/24 TECHNIQUE: CT scan of the abdomen and pelvis performed with intravenous and without oral contrast using helical scanning technique with dynamic intravenous contrast injection. Reconstructed coronal and sagittal MPR images reviewed. All images stored on PACS. Automated exposure control was used as a dose optimization technique for this examination. CONTRAST TYPE/DOSE: 124mL of IOPAMIDOL 76 % IV SOLN injected via Intravenous COMPARISON: None FINDINGS: LOWER CHEST: The heart size is normal. There is no definite evidence of pericardial effusion. There are atherosclerotic changes of the aorta and vasculature. There is a minimal to mild bibasilar subsegmental atelectasis and scarring. There are multiple pulmonary nodules noted in the visualized lung bases with the largest measuring 0.5 cm on the right in the right lower lobe (axial image 29) and 0.6 cm on the left in the left lower lobe (axial image 17). There is a small hiatal hernia. There is mild bilateral gynecomastia. LIVER: The liver is grossly normal in size and contour without definite evidence of focal hepatic lesion. The hepatic and portal veins are grossly patent. GALLBLADDER: Grossly unremarkable. BILE DUCTS: No intrahepatic or extrahepatic ductal dilatation. SPLEEN: The spleen is grossly normal in size and unremarkable. PANCREAS: The pancreas appears grossly unremarkable without definite of pancreatic ductal dilatation, peripancreatic inflammatory changes, or peripancreatic fluid collection. ADRENALS: Bilateral adrenal glands are grossly symmetrical and unremarkable. KIDNEYS/URINARY TRACT: The bilateral kidneys enhance symmetrically. There is a 2.5 cm cyst in the upper pole of the right kidney, which does not require follow-up imaging. There are multiple peripelvic cysts in the bilateral kidneys, which do not require follow-up imaging. There is no definite evidence of hydronephrosis or hydroureter. There is circumferential mucosal thickening of the urinary bladder. The prostate gland measures 5.2 cm. GI: There is no definite evidence of bowel obstruction. The appendix is visualized without definite evidence of pericecal or periappendiceal inflammatory changes to suggest appendicitis. There are scattered colonic diverticula without definite evidence of diverticulitis. There is a small fat containing periumbilical hernia. There are small bilateral fat containing inguinal hernias. There is no definite evidence of free air or fluid in the abdomen and pelvis. There are borderline enlarged and prominent subcentimeter pelvic lymph nodes noted bilaterally with largest measuring 2.3 x 1.0 cm on the right in the right common iliac region (axial image 118) and 1.6 x 1.0 cm on the left in the left common iliac region (axial image 111). There are scattered prominent subcentimeter retroperitoneal lymph nodes noted with the largest lymph node measuring 1.3 by 0.8 cm in the left para-aortic region (axial image 79). There are scattered subcentimeter mesenteric lymph nodes noted with the largest lymph node measuring 2.0 by 0.8 cm (axial image 90). MUSCULOSKELETAL: There is mild osteopenia. There is mild dextroscoliotic curvature of the spine with degenerative changes. There are degenerative changes bilateral sacroiliac joints and bilateral hips. OTHER: No other abnormality. THIS IS AN ELECTRONICALLY VERIFIED FINAL REPORT 04/17/2024 7:57 AM - Electronically signed by Miky Trotter D.O. PS: PS Report ID: [id number] Reading Location: [place] [id number] IMPRESSION: Borderline enlarged and prominent subcentimeter pelvic lymph nodes along with scattered prominent subcentimeter retroperitoneal lymph nodes, which are indeterminate in etiology and james metastasis cannot be entirely excluded. Short-term follow-up CT in 3 months is recommended to assess for stability as clinically indicated. Multiple pulmonary nodules noted in the visualized lung bases, which are indeterminate in etiology. Further evaluation with chest CT on a nonemergent basis is recommended as clinically indicated. No definite evidence of bowel obstruction. Circumferential mucosal thickening of the urinary bladder, which may be related to underdistention, chronic urinary bladder outlet obstruction secondary to enlarged prostate gland, or cystitis. Clinical correlation with urinary analysis is recommended as clinically indicated. Scattered colonic diverticula without definite evidence of diverticulitis. Mildly enlarged prostate gland measuring 5.1 cm. Normal appendix. Andrey Chaudhry MD IMG CT ORDERABLES Final Result * POCT Creatinine (04/16/2024 7:54 AM TIE KNITTER HELPER) CREATININE - POCT 0.8 0.6 - 1.3 mg/dL 04/16/2024 7:57 AM TIE KNITTER HELPER [facility] Blood 04/16/2024 7:54 AM TIE KNITTER HELPER 04/16/2024 7:57 AM TIE KNITTER HELPER None Provider POINT OF CARE TESTING Final Resu lt Performing Organization Address [facility] Co de Phone Number [facility] [address] [place] [address] * (ABNORMAL) PSA DIAGNOSTIC,TOTAL (12/19/2023 8:44 AM CDT) PSA, TOTAL (PROSTATIC SPECIFIC ANTIGEN) 6.21(H) <4.00 ng/mL 12/19/2023 1:49 PM CDT [facility] Blood Venipuncture / Unknown 12/19/2023 8:44 AM CDT 12/19/2023 8:44 AM CDT Narrative [facility] - 12/19/2023 1:49 PM CDT PSA NOTE: The PSA value should be used in conjunction with information available from clinical evaluation and other diagnostic procedures. The ALINITY Total PSA assay is a Chemiluminescent Microparticle Immunoassay (CMIA) for the quantitative determination of total PSA (both free PSA and PSA complexed to [id number]) in human serum. Total PSA values obtained with different assay methods, including Dowd PSA assays, cannot be used interchangeably. us Sandra Busby APRN, HIGHWAY TRUCK DRIVER CHEMISTRY ORDER KARL Final Result Performing Organization Address [facility] Co de Phone Number [facility] [address] [place] [address] * HEPATITIS C ANTIBODY (12/12/2023 8:02 AM CDT) hepatitis C antibody 0.14 <1 S/CO 12/12/2023 11:03 PM CDT [facility] Comment: Signal/Cutoff ratio < 0.79 is Nondetected Signal/Cutoff ratio 0.80-0.99 is Grayzone Signal/Cutoff ratio > 0.99 is Detected Supplemental assays are recommended if signal/cutoff ratio is >/=1.00. Signal/cutoff ratio result >/= 5.00 is 97% predictive of positivity for recombinant immunoblot assay (RIBA) and will be reported to the [place] Department of Public Health as required. Blood Venipuncture / Unknown 12/12/2023 8:02 AM CDT 12/12/2023 8:02 AM CDT us Sandra Busby APRN, CNP CHEMISTRY ORDER KARL Final Result [facility] [address] [place] [address], * COLOGUARD (11/01/2020 6:30 AM CDT) Cologuard Negative Negative [facility] Comment: NEGATIVE TEST RESULT. A negative Cologuard result indicates a low likelihood that a colorectal cancer (CRC) or advanced adenoma (adenomatous polyps with more advanced pre-malignant features) is present. The chance that a person with a negative Cologuard test has a colorectal cancer is less than 1 in 1500 (negative predictive value >99.9%) or has an advanced adenoma is less than 5.3% (negative predictive value 94.7%). These data are based on a prospective cross-sectional study of 10,000 individuals at average risk for colorectal cancer who were screened with both Cologuard and colonoscopy. (Darvin Godfrey al, N Engl J Med 2014;370(14):6643-7960) The normal value (reference range) for this assay is negative. COLOGUARD RE-SCREENING RECOMMENDATION: Periodic colorectal cancer screening is an important part of preventive healthcare for asymptomatic individuals at average risk for colorectal cancer. Following a negative Cologuard result, the [place] [employer] and U.S. Multi-Society Task Force screening guidelines recommend a Cologuard re-screening interval of 3 years. References: [employer] Guideline for Colorectal Cancer Screening: https://www.cancer.org/cancer/wspbl-wpcyou-lejgfs/exssmlilw-phkpqcmqv-blybmjk/ acs-recommendations.html.; Arsalan OLVERA Harsh CR, Heather PerezK, Colorectal Cancer Screening: Recommendations for Physicians and Patients from the U.S. Multi-Society Task Force on Colorectal Cancer Screening , Am J Gastroenterology 2017; 112:2897-4933. TEST DESCRIPTION: Composite algorithmic analysis of stool DNA-biomarkers with hemoglobin immunoassay. Quantitative values of individual biomarkers are not reportable and are not associated with individual biomarker result reference ranges. Cologuard is intended for colorectal cancer screening of adults of either sex, 45 years or older, who are at average-risk for colorectal cancer (CRC). Cologuard has been approved for use by the U.S. FDA. The performance of Cologuard was established in a cross sectional study of average-risk adults aged 50-84. Cologuard performance in patients ages 45 to 49 years was estimated by sub-group analysis of near-age groups. Colonoscopies performed for a positive result may find as the most clinically significant lesion: colorectal cancer [4.0%], advanced adenoma (including sessile serrated polyps greater than or equal to 1cm diameter) [20%] or non- advanced adenoma [31%]; or no colorectal neoplasia [45%]. These estimates are derived from a prospective cross-sectional screening study of 10,000 individuals at average risk for colorectal cancer who were screened with both Cologuard and colonoscopy. (Darvin Godfrey al, N Engl J Med 2014;370(14):5172-3993.) Cologuard may produce a false negative or false positive result (no colorectal cancer or precancerous polyp present at colonoscopy follow up). A negative Cologuard test result does not guarantee the absence of CRC or advanced adenoma (pre-cancer). The current Cologuard screening interval is every 3 years. ([employer] Society and U.S. Multi-Society Task Force). Cologuard performance data in a 10,000 patient pivotal study using colonoscopy as the reference method can be accessed at the following location: [email or web address]/results. Additional description of the Cologuard test process, warnings and precautions can be found at [email or web address]. Stool specimen (specimen) 11/01/2020 6:30 AM CDT 11/02/2020 8:00 PM CDT Mary Elias APRN, CNP BODY FLUIDS & STOOLS OR DERABLES Final Result [facility] [address] [place] [address], [place] [phone] [facility] [address] [place] [address] from Last 3 Months or Most Recently Relevant to Health Maintenance Additional Health Concerns Active Problems Noted Date Diagnosed Date MCCP HYPERTENSION CONCERN (P ATIENT NOT ON HIGH BLOOD PRESSURE MEDICATIONS) 03/19/2024 Insurance MEDICARE C [facility] Care Teams Public Health Analyst Relationship Specialty Start Date End Date Sandra Busby APRN, CNP [address] [place] [address] PCP - General Advanced Practice Nurse 06/11/23 Andrey Chaudhry MD #[address] [address] Consulting Physician Urology 01/20/24
--- OUTSIDE RECORDS SUMMARY | 2024-07-13 11:36 | XMS_ITS | Encounter Summary ---
Author Organization [facility] Address [address] [place] [address] Phone Care Team Providers Care Print Shop Helper Name Role Phone Sandra Busby APRN, WALI Primary Care P ropandader Andrey Chaudhry MD Unavailable [phone] Reason for Visit * Reason Comments Medication Refill Encounter Details Date Type Department Care Team (Late st Contact Info) Description 07/16/2023 Refill [facility] - Primary Care - [address] [place] [address] Liz Plaza MD [address] [place] [address] Medication Refill Social History Tobacco Use Types Packs/Day Years Used Date Smoking Tobacco: Never Smokeless Tobacco: Never Alcohol Use Standard Drinks/Week Comments Yes 0 (1 standard drink = 0.6 oz pur e alcohol) seldom [facility] Utilities Answer Date Recorded In the past 12 months has [employer] electric, gas, oil, or water company threatened [...] often do you attend chur ch or worship services? Never 06/10/2023 Do you belong to any clubs o r organizations such as islam groups, unions, fraternal or athletic groups, or [...] Total Score - Questions 1-9 0 10/2021 [facility] of Occupat ional [facility] - Occupational Stress Questionnaire Answer Date Recorded [...] place to sleep or slept in a chcf (including now)? No 06/10/2023 Education Answer Date Recorded What is the highest level of school you have completed or the highest degree you have received? 12th grade 05/11/2022 Sex and Gender Information Value Date Recorded Sex Assigned at Male 06/11/2024 7:58 AM BAND RIPSAW OPERATOR Legal Sex Male 9:26 AM BAND RIPSAW OPERATOR Gender Identity Male 06/11/2024 7:58 AM BAND RIPSAW OPERATOR Sexual Orientation Straight 06/11/2024 7: 58 AM BAND RIPSAW OPERATOR documented as of this encounter Miscellaneous Notes * Telephone Encounter - Jose Santos RN - 07/16/2023 8:13 AM CDT Medication(s) refilled and signed per [facility] Chronic Medication Refill Standing Order for Pediatricand Adult Patients. Requested Prescriptions Pending Prescriptions Disp Refills lisinopril-hydroCHLOROthiazide (PRINZIDE, ZESTORETIC) 20-25 MG Tablet [Pharmacy Med Name: LISINOPRIL-HCTZ 20-25 MG TAB] 90 Tablet 1 Sig: TAKE 1 TABLET BY MOUTH EVERY DAY Emeka Inhibitors and Diuretics Combo Protocol Passed - 07/16/2023 12:29 AM Passed - Serum potassium on record in past 12 months POTASSIUM Date Value Ref Range Status 06/04/2023 4.3 3.5 - 5.1 mmol/L Final Passed - Serum sodium on record in past 12 months SODIUM Date Value Ref Range Status 06/04/2023 139 136 - 145 mmol/L Final Passed - Blood pressure on record in past 12 months Clinician-entered: BP Readings from Last 3 Encounters: 06/27/23 135/60 06/11/23 160/62 11/14/22 164/70 Patient-entered: No data recorded Passed - Visit with relevant provider in past 12 months or upcoming 90 days Recent Visits Date Type Provider Dept 06/11/23 Office Visit Sandra Busby APRN, WALI [facility] 11/14/22 Office Visit Liz Plaza MD [facility] Showing recent visits within past 365 days and meeting all other requirements Future Appointments No visits were found meeting these conditions. Showing future appointments within next 90 days and meeting all other requirements Passed - GFR on record in past 12 months GFR, EST. NONAFRICAN Date Value Ref Range Status 06/04/2023 >60 >=60 Final amLODIPine (NORVASC) 10 MG Tablet [Pharmacy Med Name: AMLODIPINE BESYLATE 10 MG TAB] 90 Tablet 1 Sig: TAKE 1 TABLET BY MOUTH EVERY DAY Calcium-Channel Blockers Protocol Passed - 07/16/2023 12:29 AM Passed - BP on record in the past year Clinician-entered: BP Readings from Last 3 Encounters: 06/27/23 135/60 06/11/23 160/62 11/14/22 164/70 Patient-entered: No data recorded Passed - Visit with relevant provider in past 12 months or upcoming 90 days Recent Visits Date Type Provider Dept 06/11/23 Office Visit Sandra Busby APRN, WALI [facility] 11/14/22 Office Visit Liz Plaza MD [facility] Showing recent visits within past 365 days and meeting all other requirements Future Appointments No visits were found meeting these conditions. Showing future appointments within next 90 days and meeting all other requirements documented in this encounter Plan of Treatment Upcoming Encounters Date Type Department Care Team (Late st Contact Info) Description 08/14/2024 10:15 AM CDT Appointment [facility] Mammography 1 [place] [phone] Andrew Toth MD 2 [facility]. [address] [place] [address] 09/10/2024 8:[address] [facility] - Primary Care - [address] [place] [phone] [facility] [address] [facility] 09/22/2024 8:00 AM CDT Office Visit [facility] - Primary Care - [address] [place] [address] Sandra Busby APRN, RADAR SIGNAL PROCESSING ENGINEER [address] [place] [address] documented as of this encounter Visit Diagnoses Not on filedocumented in this encounter Additional Health Concerns Assessment Noted Time PHQ-9 Depression Total Score: 0 10/27/19 8:00 AM CDT documented as of this encounter Care Teams Print Shop Helper Relationship Specialty Start Date End Date Sandra Busby APRN, RADAR SIGNAL PROCESSING ENGINEER [address] [place] [address] PCP - General Advanced Practice Nurse 06/11/23 Andrey Chaudhry MD #[address] [address] Consulting Physician Urology 01/20/24 documented as of this encounter
--- OUTSIDE RECORDS SUMMARY | 2024-07-13 11:36 | XMS_ITS | Clinical Summary ---
Author Organization [facility] Address 1 [place] [address] Care Team Providers Care Crocheter Hand Name Role Phone Onur Frances MD Primary Care Provider + Allergies No known active allergies Medications amLODIPine (NORVASC) 5 mg tablet Take 1 tablet (5 mg total) by mouth daily 30 tablet 07/08/2019 Active Encounters Date Type Department Care Team Description 06/02/2024 12:42 PM PRODUCT SAFETY ADMINISTRATOR - 06/02/2024 11:59 PM PRODUCT SAFETY ADMINISTRATOR Hospital Encounter [facility] Medical Office Building [address] [address] Malignant neoplasm of prostate (HCC) Discharge Disposition: Discharge to home or self care 05/12/2024 Orders Only Urology ArkAndrew MD Malignant neoplasm of prostate (HCC) (Primary Dx) from Last 3 Months Immunizations Immunization Administration Dates Next Due Tdap 07/08/2019 Social History Tobacco Use Types Packs/Day Years Used Date Smoking Tobacco: Never Assessed Sex and Gender Information Value Date Recorded Sex Assigned at Not on file Legal Sex Male 9:29 AM PRODUCT SAFETY ADMINISTRATOR Gender Identity Not on file Sexual Orientation Not on file Last Filed Vital Signs Vital Sign Reading Time Taken Comments Blood Pressure 196/92 07/08/2019 9:14 PM CDT Pulse 71 07/08/2019 7:35 PM CDT Temperature 36.8 C (98.3 F) 07/08/2019 7:35 PM CDT Respiratory Rate 20 07/08/2019 7:35 PM CDT Oxygen Saturation 100% 07/08/2019 7:35 PM CDT Inhaled Oxygen Concentration - - Weight 115.7 kg (255 lb) 07/08/2019 7:35 PM CDT Height 185.4 cm (6' 1 ) 07/08/2019 7:35 PM CDT Body Mass Index 33.64 07/08/2019 7:35 PM CDT Plan of Treatment Health Maintenance Due Date Last Done Comments Colon Cancer Screening-Colonoscopy 1955 Depression Screening 1955 Fall Risk Assessment 1955 Hepatitis C Screening 1955 Prostate Cancer Screening-PSA 1955 Hepatitis B Screening 12/30/1973 Zoster Vaccine (1 of 2) 12/30/2005 Well Visit 65+ 12/30/2020 Covid-19 Vaccine (3 - 2023-2 5 season) 2023 04/21/2021, 07/15/2020 DTaP/Tdap/Td Vaccine (2 - Td or Tdap) 07/07/2029 07/08/2019 Pneumococcal vaccine 65+ Completed 11/14/2022, 0210/2021 Influenza Vaccine Completed 12/19/2023, , 04/21/2021, Additional history exists Abdominal Aortic Aneurysm (A AA) Screen Completed 04/16/2024 Procedures Procedure Name Priority Date/Time Associated Diagnosis Comments PET/CT PROSTATE CANCER PSMA SKULL TO THIGH Schedule Routine, Read Routine (OP Routine) 06/02/2024 2:16 PM PRODUCT SAFETY ADMINISTRATOR Malignant neoplasm of prostate (HCC) from Last 3 Months Results * PET/CT Prostate Cancer PSMA Skull to Thigh (06/02/2024 2:16 PM PRODUCT SAFETY ADMINISTRATOR) Anatomical Region Laterality Modality N/A Positron Emissio n Tomography (PET) 06/02/2024 2:40 PM PRODUCT SAFETY ADMINISTRATOR Narrative 06/02/2024 3:10 PM PRODUCT SAFETY ADMINISTRATOR EXAM DESCRIPTION: F 18-PSMA PET-CT REASON FOR STUDY: MALIGNANT NEOPLASM OF PROSTATE RADIOPHARMACEUTICAL: 8.7 mCi F-18 PSMA via right antecubital TECHNIQUE: The patient received an IV injection of the radiotracer. After an initial uptake phase of approximately 60 minutes, a low-dose CT scan without intravenous and without oral contrast was acquired from skull base to mid-thigh. Subsequently positron emission tomography images were obtained from the thigh to skull base. CT, PET and fused images were reconstructed in transaxial, coronal, and sagittal projections and interpreted from a workstation. COMPARISON: None FINDINGS: Prostate/prostate bed: Heterogeneously increased PSMA uptake with a focus of PSMA avidity in the left apex, consistent with malignancy. Lymph nodes: 10 mm left common iliac node with SUV max of 2.9 (4/148) and 10 mm right common iliac node with SUV max of 2.8 (4/151), PSMA avid node at the left common iliac bifurcation with SUV max of 2.3 (4/163) Osseous structures: No PSMA avid osseous lesion. Head and neck: Expected prominent radiotracer activity in the lacrimal and salivary glands. No radiotracer avid cervical lymph nodes. Chest: Patent central airways. Mild bilateral emphysema. Non PSMA avid 5 mm subpleural nodule in the right lung base, 6 mm subpleural nodule in the left lung base and 5 mm subpleural nodule in the left lower lobe consistent with benign infectious/inflammatory nodules. No abnormal radiotracer uptake in the chest. No suspicious pulmonary nodules. Abdomen and pelvis: Expected mild activity in the liver without focal abnormal uptake. Expected intense radiotracer activity in the urinary system, proximal small bowel and spleen. Soft tissues: No abnormal radiotracer activity in the soft tissues. IMPRESSION: PSMA avid prostate gland, consistent with malignancy. PSMA avid common iliac nodes, suspicious for metastatic disease. THIS IS AN ELECTRONICALLY VERIFIED FINAL REPORT 06/02/2024 3:10 PM - Electronically signed by Angelica Monson M.D. FT: FT Report ID: [id number] Reading Location: [id number] Procedure Note Angelica Crowder MD - 06/02/2024 EXAM DESCRIPTION: F 18-PSMA PET-CT REASON FOR STUDY: MALIGNANT NEOPLASM OF PROSTATE RADIOPHARMACEUTICAL: 8.7 mCi F-18 PSMA via right antecubital TECHNIQUE: The patient received an IV injection of the radiotracer. Afteran initial uptake phase of approximately 60 minutes, a low-dose CT scanwithout intravenous and without oral contrast was acquired from skull base to mid-thigh. Subsequently positron emission tomography images were obtainedfrom the thigh to skull base. CT, PET and fused images were reconstructed in transaxial, coronal, and sagittal projections and interpreted from a workstation. COMPARISON: None FINDINGS: Prostate/prostate bed: Heterogeneously increased PSMA uptakewith a focus of PSMA avidity in the left apex, consistent with malignancy. Lymph nodes: 10 mm left common iliac node with SUV max of 2.9 (4/148) and10 mm right common iliac node with SUV max of 2.8 (4/151), PSMA avid node atthe left common iliac bifurcation with SUV max of 2.3 (4/163) Osseous structures: No PSMA avid osseous lesion. Head and neck: Expected prominent radiotracer activity in the lacrimaland salivary glands. No radiotracer avid cervical lymph nodes. Chest: Patent central airways. Mild bilateral emphysema. Non PSMA avid5 mm subpleural nodule in the right lung base, 6 mm subpleural nodule in theleft lung base and 5 mm subpleural nodule in the left lower lobe consistentwith benign infectious/inflammatory nodules. No abnormal radiotracer uptake inthe chest. No suspicious pulmonary nodules. Abdomen and pelvis: Expected mild activity in the liver without focal abnormal uptake. Expected intense radiotracer activity in the urinarysystem, proximal small bowel and spleen. Soft tissues: No abnormal radiotracer activity in the soft tissues. IMPRESSION: PSMA avid prostate gland, consistent with malignancy. PSMA avid common iliac nodes, suspicious for metastatic disease. THIS IS AN ELECTRONICALLY VERIFIED FINAL REPORT 06/02/2024 3:10 PM - Electronically signed by Angelica Monson M.D. FT: FT Report ID: [id number] Reading Location: [id number] Andrew Toth MD IMG PET PROCEDURES Final Resu lt from Last 3 Months Insurance [facility] [employer] MEDICARE Care Teams Crocheter Hand Relationship Specialty Start Date End Date Onur Frances MD PCP - General 07/08/19
--- OUTSIDE RECORDS SUMMARY | 2024-07-13 11:36 | XMS_ITS | Referral Summary ---
Author Organization [facility] Address 1 [place] [address] Care Team Providers Care Early Childhood Worker Name Role Phone Onur Frances MD Primary Care Provider + Encounters Date Type Department Care Team Description 06/02/2024 12:42 PM TAIL EDGER - 06/02/2024 11:59 PM TAIL EDGER Hospital Encounter [facility] Medical Office Building [address] [address] Malignant neoplasm of prostate (HCC) Discharge Disposition: Discharge to home or self care 05/12/2024 Orders Only Urology Ark, Andrew Nieves MD Malignant neoplasm of prostate (HCC) (Primary Dx) from Last 3 Months Allergies No known active allergies Medications amLODIPine (NORVASC) 5 mg tablet Take 1 tablet (5 mg total) by mouth daily 30 tablet 07/08/2019 Active Immunizations Immunization Administration Dates Next Due Tdap 07/08/2019 Social History Tobacco Use Types Packs/Day Years Used Date Smoking Tobacco: Never Assessed Sex and Gender Information Value Date Recorded Sex Assigned at Not on file Legal Sex Male 9:29 AM TAIL EDGER Gender Identity Not on file Sexual Orientation [...] 07/08/2019 7:35 PM CDT Plan of Treatment Not on file Procedures Procedure Name Priority Date/Time Associated Diagnosis Comments PET/CT PROSTATE CANCER PSMA SKULL TO THIGH Schedule Routine, Read Routine (OP Routine) 06/02/2024 2:16 PM TAIL EDGER Malignant neoplasm of prostate (HCC) from Last 3 Months Results * PET/CT Prostate Cancer PSMA Skull to Thigh (06/02/2024 2:16 PM TAIL EDGER) Anatomical Region Laterality Modality N/A Positron Emissio n Tomography (PET) 06/02/2024 2:40 PM TAIL EDGER Narrative 06/02/2024 3:10 PM TAIL EDGER EXAM DESCRIPTION: F 18-PSMA PET-CT REASON FOR [...] Angelica Monson M.D. FT: FT Report ID: [id number] Reading Location: [place] [address] Procedure Note Angelica Crowder MD - 06/02/2024 [...] Angelica Monson M.D. FT: FT Report ID: [id number] Reading Location: [place] [address] Andrew Toth MD IMG PET PROCEDURES Final Resu lt from Last 3 Months Insurance [employer] MEDICARE Care Teams Early Childhood Worker Relationship Specialty Start Date End Date Onur Frances MD PCP - General 07/08/19
--- OUTSIDE RECORDS SUMMARY | 2024-07-13 11:36 | XMS_ITS | Encounter Summary ---
Author Organization [facility] Address [address] [place] [address] Phone Care Team Providers Care Maintenance Porter Name Role Phone Sandra Busby APRN, WALI Primary Care P ropandader Andrey Chaudhry MD Unavailable [phone] Reason for Visit * Reason Comments Medication Refill Encounter Details Date Type Department Care Team (Late st Contact Info) Description 08/16/2023 Refill [facility] - Primary Care - [address] [place] [address] Liz Plaza MD [address] [place] [address] Medication Refill Social History Tobacco Use Types Packs/Day Years Used Date Smoking Tobacco: Never Smokeless Tobacco: Never Alcohol Use Standard Drinks/Week Comments Yes 0 (1 standard drink = 0.6 oz pur e alcohol) seldom [facility] Utilities Answer Date Recorded In the past 12 months has [employer] electric, gas, oil, or water company threatened [...] often do you attend chur ch or faith services? Never 06/10/2023 Do you belong to any clubs o r organizations such as alevism groups, unions, fraternal or athletic groups, or [...] Total Score - Questions 1-9 0 10/2021 [facility] of Occupat ional [facility] - Occupational Stress Questionnaire Answer Date [...] place to sleep or slept in a half-way (including now)? No 06/10/2023 Education Answer Date Recorded What is the highest level of school you have completed or the highest degree you have received? 12th grade 05/11/2022 Sex and Gender Information Value Date Recorded Sex Assigned at Male 06/11/2024 7:58 AM WINDOWS SYSTEMS ADMIN Legal Sex Male 9:26 AM WINDOWS SYSTEMS ADMIN Gender Identity Male 06/11/2024 7:58 AM WINDOWS SYSTEMS ADMIN Sexual Orientation Straight 06/11/2024 7: 58 AM WINDOWS SYSTEMS ADMIN documented as of this encounter Plan of Treatment Upcoming Encounters Date Type Department Care Team (Late st Contact Info) Description 08/14/2024 10:15 AM CDT [facility] 1 [place] [address] Andrew Toth MD [address] [address] 09/10/2024 8:30 AM CDT Lab [facility] [address] [place] [address] [facility] 09/22/2024 8:00 AM CDT Office Visit [facility] [address] [place] [address] Sandra Busby APRN, ASSEMBLER [address] [place] [address] documented as of this encounter Visit Diagnoses Diagnosis Edema, unspecified type documented in this encounter Additional Health Concerns Assessment Noted Time PHQ-9 Depression Total Score: 0 10/27/19 21 8:00 AM CDT documented as of this encounter Care Teams Maintenance Porter Relationship Specialty Start Date End Date Sandra Busby APRN, ASSEMBLER [address] [place] [address] PCP - General Advanced Practice Nurse 06/11/23 Andrey Chaudhry MD #[address] [address] Consulting Physician Urology 01/20/24 documented as of this encounter
--- OUTSIDE RECORDS SUMMARY | 2024-07-13 11:36 | XMS_ITS | Encounter Summary ---
Author Organization [facility] Address [address] [place] [place] [address] Phone Care Team Providers Care Cold Storage Worker Name Role Phone Sandra Busby APRN, CNP Primary Care P rovider Andrey Chaudhry MD Unavailable [phone] Reason for Visit * Reason Comments Medication Refill Encounter Details Date Type Department Care Team (Late st Contact Info) Description 01/16/2024 Refill [facility] - Primary Care - [address] [place] [address] Sandra Busby APRN, CNP [address] [place] [address] Medication Refill Social History Tobacco Use Types Packs/Day Years Used Date Smoking Tobacco: Never Smokeless Tobacco: Never Alcohol Use Standard Drinks/Week Comments Yes 0 (1 standard drink = 0.6 oz pur e alcohol) Seldom [facility] Utilities Answer Date Recorded In the past 12 months has [employer] electric, gas, oil, or water company threatened [...] often do you attend chur ch or spiritism services? 1 to 4 times per year 12/17/2023 Do you belong to any clubs o r organizations such as adventism groups, unions, fraternal or athletic groups, or [...] Total Score - Questions 1-9 0 06/2023 [facility] Occupat ional Health - Occupational Stress [...] place to sleep or slept in a snf (including now)? No 06/10/2023 Housing Stability Vital [...] were you homeless or living in a snf (including now)? No 12/17/2023 Education Answer Date Recorded What is the highest level of school you have completed or the highest degree you have received? 12th grade 05/11/2022 Sex and Gender Information Value Date Recorded Sex Assigned at Male 06/11/2024 7:58 AM PRESS SUPERVISOR Legal Sex Male 9:26 AM PRESS SUPERVISOR Gender Identity Male 06/11/2024 7:58 AM PRESS SUPERVISOR Sexual Orientation Straight 06/11/2024 7: 58 AM PRESS SUPERVISOR documented as of this encounter Plan of Treatment Upcoming Encounters Date Type Department Care Team (Late st Contact Info) Description 08/14/2024 10:15 AM CDT [facility] 1 [place] [phone] Andrew Toth MD [address] [address] 09/10/2024 8:30 AM CDT Lab [facility] - Primary Care - [address] [facility] [place] [address] [facility] 09/22/2024 8:00 AM CDT Office Visit [facility] - Primary Care - [place] [address] [facility] [place] [address] Sandra Busyb APRN, CNP [address] [place] [address] documented as of this encounter Visit Diagnoses Not on filedocumented in this encounter Additional Health Concerns Assessment Noted Time PHQ-9 Depression Total Score: 0 01/09/20 8:44 AM CDT documented as of this encounter Care Teams Cold Storage Worker Relationship Specialty Start Date End Date Sandra Busby APRN, WALI [address] [place] [place] [address] PCP - General Advanced Practice Nurse 06/11/23 Andrey Chaudhry MD #[address] [address] Consulting Physician Urology 01/20/24 documented as of this encounter
== END 2024-07-13 10:03 | disposition home or self-care (01) ==
PROVIDERS: PCP Nurse Practitioner; Visit Provider Radiology Radiation Oncology
DX: C61 Malignant neoplasm of prostate (principal)
CPT/HCPCS: 72197; A9577